=== PATIENT | male | born 1950 | race Caucasian/White ===

== ENCOUNTER 2017-03-06 23:10 | Emergency (ER) | payer OTHER ==
[2017-03-06] MEDS ORDERED: ONDANSETRON 4 MG/2 ML VIAL IVP ONE (23:42)
[2017-03-06] MEDS ORDERED: FAMOTIDINE 20 MG/NACL 50 ML IV ONE (23:42)
[2017-03-06] MEDS ORDERED: LORazepam 2 MG/ML INJ IVP ONE (23:42)
[2017-03-06] MEDS ORDERED: NS 1,000 ML IV ONE (23:51)
--- NOTE | 2017-03-07 01:09 | EDPHY ---
H & P Stated Complaint: hiccups, vomiting, unable to swallow - Medical/Surgical History Hx Asthma: No Hx Chronic Respiratory Disease: No Hx Diabetes: No Hx Cardiac Disease: No Hx Renal Disease: No Hx Cirrhosis: No Hx Alcoholism: No Hx HIV/AIDS: No Hx Splenectomy or Spleen Trauma: No - Social History Smoking Status: Never smoked Time Seen by Provider: 03/06/17 23:37 HPI/ROS: Chief complaint: Hiccups History of present illness: This is a 66-year-old male who presents to the emergency department for evaluation of hiccups. Patient reports the onset of symptoms today. He states they are persistent. They are causing him to throw up they are so intense and he cannot drink or eat because of symptoms. He states he has had similar problems 2-3 times yearly for a number of years. He has been seen by his doctor and usually controls symptoms with famotidine although today he was not able to take famotidine because of symptoms and therefore cannot control them. This is a typical exacerbation. He denies other associated signs or symptoms of fevers, no cough, no trouble breathing, no chest pain, no pain or swelling in the legs. Review of systems: A 10 point review of systems was obtained and other than described above was negative (Kadeem Campos) - Physical Exam Exam: General Appearance: Alert, nontoxic. Eyes: Pupils equal and round no pallor or injection. ENT, Mouth: Mucous membranes moist. Respiratory: There are no retractions, lungs are clear to auscultation. Cardiovascular: Regular rate and rhythm. Gastrointestinal: Abdomen is soft and nontender, no masses, bowel sounds normal. Neurological: Alert and oriented x4. Strength and sensation intact and symmetrical. Skin: Warm and dry, no rashes. Musculoskeletal: Neck is supple nontender. Extremities are symmetrical, full range of motion. Psychiatric: Patient is oriented X 3, there is no agitation. (Kadeem Campos) Constitutional: Initial Vital Signs Temperature (C) 37.1 C 03/06/17 23:13 Heart Rate 73 03/06/17 23:13 Respiratory Rate 20 03/06/17 23:13 Blood Pressure 168/105 H 03/06/17 23:13 O2 Sat (%) 97 03/06/17 23:13 O2 Delivery Mode Room Air Allergies/Adverse Reactions: No Known Allergies Allergy (Unverified 03/06/17 23:16) Home Medications: Medication Instructions Recorded Denies All. 07/12/10 Medical Decision Making ED Course/Re-evaluation: Patient seen under the supervision of my secondary supervising physician Dr. Cecile Nazario. Patient presents to the emergency depart with hiccups causing vomiting and inability to take fluids or food. Patient is nontoxic on my evaluation. He has had similar symptoms for number of years. He is symptomatically treated and reports resolution of symptoms. He is tolerating oral challenges and feeling well with no complaints. He will be discharged home. He is asked to follow up with his doctor for recheck. Return precautions are given. Patient voiced understanding and agreement with plan. ( Kadeem Campos) Differential Diagnosis: Included but not limited to hiccups, esophageal spasm, esophageal impaction ( Kadeem Campos) Other Provider: PHYSICIAN DOCUMENTATION: The patient was evaluated and managed by the Physician Supervisor Plate Pasting. My co- signature indicates that I have reviewed this chart and I agree with the findings and plan of care as documented. I am the secondary supervising physician. (Cecile Nazario) - Data Points Medications Given: Discontinued Medications Famotidine/Sodium Chloride (Pepcid 20 Mg (Premix)) 50 mls @ 200 mls/hr IV EDNOW ONE Stop: 03/06/17 23:56 Last Admin: 03/06/17 23:50 Dose: 50 mls Sodium Chloride (Ns) 1,000 mls @ 0 mls/hr IV ONCE ONE; Wide Open PRN Reason: Protocol Stop: 03/06/17 23:52 Last Admin: 03/06/17 23:52 Dose: 1,000 mls Lorazepam (Ativan Injection) 0.5 mg IVP EDNOW ONE Stop: 03/06/17 23:43 Last Admin: 03/06/17 23:51 Dose: 0.5 mg Ondansetron HCl (Zofran) 4 mg IVP EDNOW ONE Stop: 03/06/17 23:43 Last Admin: 03/06/17 23:50 Dose: 4 mg Departure - Departure Disposition: Home, Routine, Self-Care Clinical Impression: Hiccups Condition: Good Instructions: Hiccups (ED) Additional Instructions: Follow-up with your primary care doctor for continued evaluation and care If symptoms worsen or new symptoms develop return to the emergency room for recheck Referrals: UNKNOWN,UNKNOWN [Other] - As per Instructions Shyann Abraham [place] [place] - As per Instructions
[2017-03-07 01:23] VITALS: BP 133/78; PULSE 57; RESP 16; TEMP 97.7; O2SAT 96
== END 2017-03-07 01:22 | disposition home or self-care (01) ==
DX: R06.6 Hiccough (principal); E86.9 Volume depletion, unspecified
CPT/HCPCS: 96361; 96365; 96375; 99284; J2060; J2405

== ENCOUNTER 2018-11-07 23:34 | Emergency (ER) | payer OTHER ==
--- NOTE | 2018-11-08 00:22 | EDPHY ---
H & P Stated Complaint: hiccups x3 hours, nausea Time Seen by Provider: 11/07/18 23:51 HPI/ROS: Chief Complaint: Hiccups HPI: 68-year-old male presenting after having hiccups for the last several hours. Patient states that he has several episodes of the year of hiccups. They usually last for about an hour but these have been going on for greater than 3 hr. When he gets the hiccups he is unable to tolerate any oral fluids and he vomits everything he tries to drink. He has taken Zofran and Ativan prescribed by his primary care physician with no relief. He finally decided to come the emergency department. On arrival his hiccups ceased. He is currently feeling well. In the past he has been told by a GI doctor that he believes that is spicy food however his primary care physician believes that his stress. 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 Otherwise has been in usual of health. ROS: 10 systems were reviewed and were negative except those elements noted in the HPI. PMH: Denies Social History: No smoking, no alcohol, no recreational drug use Family History: non-contributory Physical Exam: Gen: Awake, Alert, No Distress HEENT: Nose: no rhinorrhea Eyes: PERRLA, EOMI Mouth: Moist mucosa Neck: Supple, no JVD Chest: nontender, lungs clear to auscultation Heart: S1, S2 normal, no murmur Abd: Soft, non-tender, no guarding Back: no CVA tenderness, no midline tenderness Ext: no edema, non-tender Skin: no rash Neuro: CN II-XII intact, Sensation grossly intact, Strength 5/5 in bilateral upper and lower extremities - Personal History Current Tetanus/Diphtheria Vaccine: Unsure - Medical/Surgical History Hx Asthma: No Hx Chronic Respiratory Disease: No Hx Diabetes: No Hx Cardiac Disease: No Hx Renal Disease: No Hx Cirrhosis: No Hx Alcoholism: No Hx HIV/AIDS: No Hx Splenectomy or Spleen Trauma: No Other PMH: denies - Social History Smoking Status: Never smoked Constitutional: Initial Vital Signs Temperature (C) 36.5 C 11/07/18 23:36 Heart Rate 79 11/07/18 23:36 Respiratory Rate 18 11/07/18 23:36 Blood Pressure 130/104 H 11/07/18 23:36 O2 Sat (%) 96 11/07/18 23:36 O2 Delivery Mode Room Air Allergies/Adverse Reactions: No Known Allergies Allergy (Verified 11/07/18 23:40) Home Medications: Medication Instructions Recorded Aspirin 81mg (*) 11/07/18 Ativan 11/07/18 Zofran 11/07/18 chlorproMAZINE HCL [Thorazine (*)] 25 mg PO ONCE #5 tab 11/08/18 Medical Decision Making ED Course/Re-evaluation: 1-year-old male presents with complaint cups which have sent off. Is tolerating okay. He does have recurrent exact actions of these. Right him a prescription for a few Thorazine to take when he has prolonged hiccups. He will follow up with primary care physician Departure - Departure Disposition: Home, Routine, Self-Care Clinical Impression: Hiccups Condition: Good Instructions: Hiccups (ED) Additional Instructions: If your hiccups return you may take 1 thorazine. Follow up with primary care physician in 2-3 days for further evaluation. Referrals: Dora Ardon MD [Primary Care Provider] - As per Instructions Prescriptions: chlorproMAZINE HCL [Thorazine (*)] 25 mg PO ONCE #5 tab
[2018-11-08 00:52] VITALS: BP 133/99
== END 2018-11-08 00:52 | disposition home or self-care (01) ==
DX: R06.6 Hiccough (principal); Z79.899 Other long term (current) drug therapy